=== PATIENT | male | born 1940 | race Caucasian/White ===

== ENCOUNTER 2019-09-24 23:16 | Inpatient (IN) ==
--- OUTSIDE RECORDS SUMMARY | 2019-09-24 23:18 | External Medical Summary | Continuity of Care Document ---
:1940 Author Name Hayes M.D. Address Unavailable Unavailable , Care Team Providers Name Role Phone Unavailable Unavailable Unavailable CATERINA, E Unavailable Unavailable Unavailable Unavailable Unavailable Problems Verruca (078.19) (B07.8) Neoplasm of uncertain behavior of skin (238.2) (D48.5) Seborrheic keratosis (702.19) (L82.1) Digital mucous cyst of toe (727.43) (M67.479) Allergies and Adverse Reactions Zosyn (Allergy) Medications Vitamin D 1000 UNIT TABS , M.D. Refills: 0 Vitamin B12 TABS , M.D. Refills: 0 Carbidopa-Levodopa 25-100 MG Oral Tablet , M.D. Refills: 0 Procedures Procedures not documented Immunizations Immunizations not documented Plan of Treatment Planned Observations Planned Goals not documented Results No Known Results Results not documented
--- OUTSIDE RECORDS SUMMARY | 2019-09-24 23:20 | External Medical Summary | Continuity of Care Document ---
:1940 Author Name Hayes M.D. Address Unavailable Unavailable , Care Team Providers Name Role Phone Unavailable Unavailable Unavailable CATERINA, E Unavailable Unavailable Unavailable Unavailable Unavailable Problems Verruca (078.19) (B07.8) Seborrheic keratosis (702.19) (L82.1) Digital mucous cyst of toe (727.43) (M67.479) Neoplasm of uncertain behavior of skin (238.2) (D48.5) Allergies and Adverse Reactions Zosyn (Allergy) Medications Carbidopa-Levodopa 25-100 MG Oral Tablet , M.D. Refills: 0 Vitamin B12 TABS , M.D. Refills: 0 Vitamin D 1000 UNIT TABS , M.D. Refills: 0 Procedures Procedures not documented Immunizations Immunizations not documented Plan of Treatment Planned Observations Planned Goals not documented Results No Known Results Results not documented
[2019-09-24] MEDS ORDERED: SODIUM CHLORIDE 0.9% 1000ML 1,000 ML IV ONE (23:50)
[2019-09-25 00:25] LABS: Hematocrit (blood only) 37.8 % (42-52); Mean Corpuscular Hemoglobin 32.7 pg (25-34); Mean Corpuscular Hgb Conc 34.4 g/dL (32-36); Mean Platelet Volume 10.7 fL (7.4-10.4); Platelet Count 157 K/uL (130-400); RDW Coefficient of Variation 14.6 % (11.5-14.5); RDW Standard Deviation 50.3 fL (36.4-46.3); Red Blood Count 3.98 M/uL (4.7-6.1); White Blood Count 4.52 K/uL (4.8-10.8)
[2019-09-25 00:37] LABS: Prothrombin Time 10.3 Seconds (9.0-12.0)
[2019-09-25 00:41] LABS: Alanine Aminotransferase 11 U/L (12-78); Albumin Level 3.1 gm/dl (3.4-5.0); Aspartate Aminotransferase 25 U/L (15-37); BUN Creatinine Ratio 28.1 (10-20); Bilirubin Direct 0.1 mg/dl (0-0.2); Blood Urea Nitrogen 26 mg/dl (7-18); Carbon Dioxide 30 mmol/L (21-32); Chloride 105 mmol/L (98-107); Est GFR (African American) 90.3; Est GFR (Non-African American) 77.9; Glucose 94 mg/dl (70-99); Magnesium 2.2 mg/dl (1.8-2.4); Potassium 4.3 mmol/L (3.5-5.1); Sodium 140 mmol/L (136-145)
[2019-09-25 00:46] LABS: Alkaline Phosphatase 141 U/L (45-117); Basophils # (auto) 0.05 K/uL (0-0.2); Basophils % (auto) 1.1 %; Bilirubin,Total 0.4 mg/dl (0.2-1); Eosinophils # (auto) 0.05 K/uL (0-0.5); Eosinophils % (auto) 1.1 %; Immature Granulocytes % (auto) 6.6 %; Lymphocytes # (auto) 1.14 K/uL (1.2-3.4); Lymphocytes % (auto) 25.2 %; Monocytes # (auto) 0.46 K/uL (0.11-0.59); Monocytes % (auto) 10.2 %; Neutrophils # (auto) 2.52 K/uL (1.4-6.5); Neutrophils % (auto) 55.8 %; RBC Morphology Unremarkable; Total Protein 7.4 gm/dl (6.4-8.2); Troponin I < 0.015 ng/ml (0-0.045)
[2019-09-25 01:42] LABS: Appearance Urine Clear (Clear); Bilirubin Urine Negative (Negative); Blood Urine Negative (Negative); Color Urine Yellow; Glucose Urine UA Negative (Negative); Ketones Urine Negative (Negative); Leukocyte Esterase Urine Negative (Negative); Nitrite Urine Negative (Negative); Protein Urine Negative (Negative); Specific Gravity Urine 1.019 (1.000-1.030); Urobilinogen Urine Negative (Negative); pH Urine 5.5 (4.5-7.5)
[2019-09-25] MEDS ORDERED: ASPIRIN CHEW 324 MG PO STA (02:08)
--- NOTE | 2019-09-25 02:51 | History & Physical Report ---
Date of Service September 25, 2019 Assessment & Plan (1) Facial droop: Right facial droop With weakness/numbness on the contralateral extremities Possible CVA (?brainstem lesion) ? 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 prostate cancer status post surgery Parkinson's disease, at baseline Chronic anemia, hemoglobin better than last baseline documented in Epic OBS Medical telemetry Neurochecks Add Plavix to aspirin for now for possible aspirin failure until acute stroke ruled out Repeat CT head after 12 hours RE follow-up study for possible CVA (MRI unfortunately precluded by PPM.) Stroke work-up as follows : TTE, carotid Dopplers, check lipid profile Neurology consult RE right facial droop w contralateral extremity weakness/numbness Permissive hypertension for now DVT prophylaxis per Lovenox subcu Full code Text document was generated using [employer] voice recognition software. It may contain grammatical or spelling errors. Kindly contact undersigned for clarification of any documentation item in question. History of Present Illness Parkinson's disease as per records, hernia repair, Chief Complaint: Weakness Primary Care Provider: Nir Ulloa History obtained from patient, family, and records. Medical history significant for symptomatic bradycardia status post PPM , smoldering myeloma ongoing Revlimid tx, prostate cancer status post surgery, history of Parkinson's disease, liver hemangioma status post surgery. Yesterday morning patient woke up feeling weaker than usual which patient attributed to chemotherapy medicine. Left arm felt a little weaker than the right. Left lower extremity numbness. No headache. Some dizziness symptoms as per patient. Around dinnertime last night, patient noted right lower side of the face to be a little droopy. No prior episodes. Patient brought to the ER for evaluation by family. 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, lives with Allergies Allergy/AdvReac Type Severity Reaction Status Date / Time piperacillin AdvReac Intermediate COLD SWEAT Unverified 09/25/19 00:27 tazobactam AdvReac Intermediate COLD SWEAT Unverified 09/25/19 00:27 Home Medications Home Medications Medication Instructions Recorded Confirmed Type Magnesium Complex 400 mg PO DAILY 09/25/19 09/25/19 History Medical Marijuana 1 dose PO DIRECTED 09/25/19 09/25/19 History acyclovir 400 mg PO BID 09/25/19 09/25/19 History ascorbic acid (vitamin C) [Vitamin 1,000 mg PO DAILY 09/25/19 09/25/19 History C] aspirin [Aspirin Low Dose] 81 mg PO DAILY 09/25/19 09/25/19 History carbidopa-levodopa 1 tab PO DIRECTED 09/25/19 09/25/19 History cholecalciferol (vitamin D3) 5,000 unit PO DAILY 09/25/19 09/25/19 History dexamethasone 20 mg PO DIRECTED 09/25/19 09/25/19 History lenalidomide [Revlimid] 10 mg PO DIRECTED 09/25/19 09/25/19 History tramadol 50 mg PO DIRECTED PRN 09/25/19 09/25/19 History Past Med/Surg History Medical History Multiple myeloma Pacemaker Parkinson's disease Tremor Family History Other No pertinent family history Social History Preferred Language: Malaysian Communication Ability: Effective Process 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 Required: No Beliefs That Will Affect Care: None Current Living Situation: Spouse Feels Safe at Home: Yes Smoking Status: Never smoker Do You Dip or Chew Tobacco: No ; Hx Alcohol Use: No Hx Substance Use: No Review of Systems Review of Systems: As per HPI, all 10 systems reviewed, all other ROS negative Physical Exam Physical Exam: GENERAL: Comfortable, slightly anxious, no respiratory distress SKIN: Pallor , warm HEENT: Pale palpebral conjunctivae, no ptosis, nasolabial fold flattening right face, dry buccal mucosa NECK : Supple, no tenderness CHEST : CTA, no tenderness HEART : RRR, no obvious murmurs ABDOMEN: Some distention, nontender EXTREMITIES : No LE swelling/tenderness, no other conspicuous deformities noted NEUROLOGIC : Coherent, subtle right facial asymmetry, MMTS BUE, BLE 3/5, no pronator drift, rest tremors more prominent on the right upper extremity, gait and stance not assessed Results & Data Vital Signs (Past 12 Hours) Vital Signs Temp Pulse Pulse Resp BP BP Pulse Ox 09/25/19 01:00 69 20 165/68 H 99 09/25/19 00:25 77 20 152/72 H 98 09/25/19 00:22 98 09/24/19 23:29 36.5 C 79 18 151/78 H 100 Laboratory Results Laboratory Results WBC 4.52 K/uL (4.8-10.8) L 09/25/19 00:05 RBC 3.98 M/uL (4.7-6.1) L 09/25/19 00:05 Hgb 13.0 g/dL (14.0-18.0) L 09/25/19 00:05 Hct 37.8 % (42-52) L 09/25/19 00:05 MCV 95.0 fL (80-100) 09/25/19 00:05 MCH 32.7 pg (25-34) 09/25/19 00:05 MCHC 34.4 g/dL (32-36) 09/25/19 00:05 RDW Std Deviation 50.3 fL (36.4-46.3) H 09/25/19 00:05 RDW Coeff of Sven 14.6 % (11.5-14.5) H 09/25/19 00:05 Plt Count 157 K/uL (130-400) 09/25/19 00:05 MPV 10.7 fL (7.4-10.4) H 09/25/19 00:05 Immature Gran % (Auto) 6.6 % 09/25/19 00:05 Neut % (Auto) 55.8 % 09/25/19 00:05 Lymph % (Auto) 25.2 % 09/25/19 00:05 Major % (Auto) 10.2 % 09/25/19 00:05 Eos % (Auto) 1.1 % 09/25/19 00:05 Baso % (Auto) 1.1 % 09/25/19 00:05 Immature Gran # (Auto) 0.30 K/uL (0.00-0.02) H 09/25/19 00:05 Neut # (Auto) 2.52 K/uL (1.4-6.5) 09/25/19 00:05 Lymph # (Auto) 1.14 K/uL (1.2-3.4) L 09/25/19 00:05 Major # (Auto) 0.46 K/uL (0.11-0.59) 09/25/19 00:05 Eos # (Auto) 0.05 K/uL (0-0.5) 09/25/19 00:05 Baso # (Auto) 0.05 K/uL (0-0.2) 09/25/19 00:05 RBC Morphology Unremarkable 09/25/19 00:05 PT 10.3 Seconds (9.0-12.0) 09/25/19 00:05 INR 1.0 (0.9-1.1) 09/25/19 00:05 Sodium 140 mmol/L (136-145) 09/25/19 00:05 Potassium 4.3 mmol/L (3.5-5.1) 09/25/19 00:05 Chloride 105 mmol/L (98-107) 09/25/19 00:05 Carbon Dioxide 30 mmol/L (21-32) 09/25/19 00:05 Anion Gap 5.0 (3-11) 09/25/19 00:05 BUN 26 mg/dl (7-18) H 09/25/19 00:05 Creatinine 0.94 mg/dl (0.6-1.4) 09/25/19 00:05 Est Cr Clr Drug Dosing Not Reportable 09/25/19 00:05 Est GFR ( Amer) 90.3 09/25/19 00:05 Est GFR (Non-Af Amer) 77.9 09/25/19 00:05 BUN/Creatinine Ratio 28.1 (10-20) H 09/25/19 00:05 Glucose 94 mg/dl (70-99) 09/25/19 00:05 Calcium 9.0 mg/dl (8.5-10.1) 09/25/19 00:05 Magnesium 2.2 mg/dl (1.8-2.4) 09/25/19 00:05 Total Bilirubin 0.4 mg/dl (0.2-1) 09/25/19 00:05 Direct Bilirubin 0.1 mg/dl (0-0.2) 09/25/19 00:05 AST 25 U/L (15-37) 09/25/19 00:05 ALT 11 U/L (12-78) L 09/25/19 00:05 Alkaline Phosphatase 141 U/L (45-117) H 09/25/19 00:05 Troponin I < 0.015 ng/ml (0-0.045) 09/25/19 00:05 Total Protein 7.4 gm/dl (6.4-8.2) 09/25/19 00:05 Albumin 3.1 gm/dl (3.4-5.0) L 09/25/19 00:05 Urine Color Yellow 09/25/19 01:20 Urine Appearance Clear (Clear) 09/25/19 01:20 Urine pH 5.5 (4.5-7.5) 09/25/19 01:20 Ur Specific [place] 1.019 (1.000-1.030) 09/25/19 01:20 Urine Protein Negative (Negative) 09/25/19 01:20 Urine Glucose (UA) Negative (Negative) 09/25/19 01:20 Urine Ketones Negative (Negative) 09/25/19 01:20 Urine Blood Negative (Negative) 09/25/19 01:20 Urine Nitrite Negative (Negative) 09/25/19 01:20 Urine Bilirubin Negative (Negative) 09/25/19 01:20 Urine Urobilinogen Negative (Negative) 09/25/19 01:20 Ur Leukocyte Esterase Negative (Negative) 09/25/19 01:[address] head initial read: No acute intracranial abnormality. Small 4 mm colloid cyst near the montanez of [facility]. Mild cerebral volume loss. Chest x-ray as per my interpretation: Atelectasis, PPM left EKG as per my interpretation : Rate 70, NSR, normal axis, no ischemia, PVCs
[2019-09-25] MEDS ORDERED: CLOPIDOGREL BISULFATE 75 MG TAB PO STA (02:55)
[2019-09-25] MEDS ORDERED: PROMETHAZINE HCL 12.5 MG in SODIUM CHLORIDE 0.9% 50 ML IV PRN (04:15)
[2019-09-25] MEDS ORDERED: TRAMADOL HCL 50 MG TABLET PO PRN (04:15)
[2019-09-25] MEDS ORDERED: LACTATED RINGER'S 1,000 ML IV ONE (04:15)
[2019-09-25] MEDS ORDERED: ACETAMINOPHEN 325 MG TAB PO PRN (04:15)
[2019-09-25] MEDS ORDERED: MEDICAL MARIJUANA PO PRN (04:49)
[2019-09-25] MEDS ORDERED: PATIENT'S HEIGHT AND/OR WEIGHT NEEDED SCH (05:00)
--- NOTE | 2019-09-25 06:10 | Emergency Department Note ---
Entered by Cris Miranda acting as a scribe for ED Provider Note Name: MIKAELA ALEXANDRA Age: 78 Arrives Via: Walk-In Informant: Patient CC: Weakness HPI: 78M arrives for evaluation of weakness that began this morning. The patient complains of intermittent shakiness as well. He has a history of Parkinsons, but his tremors seem to be worse today. He is also on a chemotherapy pill since January for multiple myeloma. He notes weakness in his left leg and arm. The patient denies history of stroke, or any family history of stroke or heart disease. He takes baby aspirin each day. He denies urinary symptoms, double vision, chest pain, palpitations, diarrhea, shortness of breath, and abdominal pain. ROS: See above HPI for pertinent positives & negatives. A total of 10 systems reviewed and were otherwise negative. Past Medical History: Hypertension Multiple Myeloma Parkinson's disease Past Surgical History:No known surgical history Family History:No pertinent family history Social History:See Below Home Medications:See Below Allergies:Piperacillin and Tazobactam Vitals:BP: 151/78 Pulse: 79 Resp: 18 Temp: 36.5 O2 Sat: 100 Physical Exam: GENERAL: Patient is chronically unwell appearing and in mild distress. EYES: No scleral icterus, unremarkable pupils. ENT: Mucous membranes dry, no nasal congestion. NECK: No masses appreciated, nomeningismus, trachea is midline. RESPIRATORY: No dyspnea. Clear to auscultation and equal bilaterally. No wheeze, no rhonchi. CARDIOVASCULAR: Regular rate and rhythm.No murmurs, rubs, gallops appreciated. GASTROINTESTINAL: Abdomen soft, non-tender, no peritonitis.Bowel sounds positive.No masses appreciated. BACK: No midline tenderness, no CVA tenderness EXTREMITIES: Normal motion all extremities, no cyanosis, no edema. NEUROLOGIC: Constant tremor in all extremities. Right lower facial droop overcome with voluntary muscles. Mild decreased strength left hand. Ataxic with left lower leg. Alert and oriented, no acute motor or sensory deficits, no focal weakness, cranial nerves grossly intact. SKIN: No rash, no jaundice, no diaphoresis. ED Course: Prior Medical Record, Triage/Nursing Notes, Medications, Allergies reviewed by Me Vital Signs: reviewed and remarkable for HTN Labs:Reviewed and remarkable for no significant abnormalities Interventions: Saline Lock, NSS bolus 1 L IV, Asa 324mg PO Imaging:X ray results are stated below per my interpretation: Chest: 1 view: No infiltrate, no effusion, normal cardiac border. [facility] Radiologist interpretation reviewed by me: CT head no acute findings EKG:Per My Interpretation: Indication Weakness: NSR 71 bpm, qtc 432. No Ectopy. No Ischemia. Compared to EKG 07/24/15, no significant changes Reassessments/Times: 2342: Past medical records reviewed. The patient was evaluated in room C11B. A complete history and physical exam was performed. 0110: The patient feels much better. He still has weakness to his hand, but better color to his face. 0207: Dr. Walker, [facility] hospitalist, has been paged. The patient was agreeable with staying in the hospital and understands the treatment plan. 0211: I spoke to Dr. Walker who agreed to take over care of the patient. He will stay for further evaluation. Blood pressure:Elevated - further management by hospitalist Disposition:Admit Prescriptions:None. Differentials: Differential includes acute coronary syndrome, myocardial infarction, CVA, TIA, anemia, infection, pneumonia, UTI, pyelonephritis, poor nutrition, dehydration, electrolyte disturbance,hypoglycemia, as well as others were considered. Medical Decision Making: Pleasant 78 yr old male with multiple myeloma and parkinsons amongst others arrives with worsening weakness primarily of left hand/leg but also found to have right lower facial droop. Facial droop resolved with IV fluids and patient feeing much better. Still with hand weakness. Clearly was dehydrated which may have exacerbated symptoms but on further exams still with weakness in hand. He likely had small CVA though not TPA candidate given length of symptoms. He is breathing comfortably, has no evidence of infection and is otherwise stable. Given history and findings hospitalist consulted for further evaluation. Patient given ASA for neuro protection. Impression: Left arm weakness Right facial droop Dehydration The scribe's documentation has been prepared under my direction and personally reviewed by me in its entirety. I confirm that the note above accurately reflects all work, treatment, procedures, and medical decision making performed by me. Gabriel Zimmer MD Impression & Plan Left arm weakness, Dehydration, Facial droop Past Med/Surg History Medical History Multiple myeloma Pacemaker Parkinson's disease Tremor Family History Other No pertinent family history Social History Preferred Language: Maldivian Communication Ability: Effective Regional Guide Required: No Beliefs That Will Affect Care: None Current Living Situation: Spouse Feels Safe at Home: Yes Smoking Status: Never smoker Do You Dip or Chew Tobacco: No ; Hx Alcohol Use: No Hx Substance Use: No Results & Data Vital Signs Vital Signs - 24 hr 09/24/19 23:29 09/25/19 00:22 09/25/19 00:25 Temperature 36.5 C Temperature Source Oral Pulse Rate 79 Pulse Rate [Apical] 77 Pulse Rhythm Regular Pulse Rhythm [Apical] Regular Pulse Strength Normal Pulse Strength [Apical] Normal Respiratory Rate 18 20 Respiratory Effort / Characteristics Non-Labored Spontaneous Non-Labored Respiratory Depth Normal Normal Respiratory Pattern Blood Pressure 151/78 H Blood Pressure [Right Arm] 152/72 H Blood Pressure Mean 102 Blood Pressure Mean [Right Arm] 98 Blood Pressure Position Sitting Blood Pressure Position [Right Arm] Sitting Pulse Oximetry 100 98 98 Oxygen Delivery Method Room Air Room Air Room Air Sepsis Recent Fever Within 48 Hours No Sepsis New/Unexplained Change in Mental Status No Sepsis Action Taken by Nursing No Action Required 09/25/19 01:00 09/25/19 02:50 Temperature Temperature Source Pulse Rate Pulse Rate [Apical] 69 69 Pulse Rhythm Pulse Rhythm [Apical] Regular Pulse Strength Pulse Strength [Apical] Normal Respiratory Rate 20 20 Respiratory Effort / Characteristics Non-Labored Spontaneous Respiratory Depth Normal Respiratory Pattern Regular Blood Pressure Blood Pressure [Right Arm] 165/68 H 147/71 H Blood Pressure Mean Blood Pressure Mean [Right Arm] 100 96 Blood Pressure Position Blood Pressure Position [Right Arm] Sitting Sitting Pulse Oximetry 99 100 Oxygen Delivery Method Room Air Room Air Nasal Cannula Sepsis Recent Fever Within 48 Hours Sepsis New/Unexplained Change in Mental Status Sepsis Action Taken by [facility] Medications Current Medication List: was personally reviewed by me Laboratory Data Attestation: I reviewed the patient's lab results. Result diagrams: 09/25/19 00:05 09/25/19 00:05 Lab Results 09/25/19 09/25/19 09/25/19 Range/Units 00:05 00:05 00:05 WBC 4.52 L (4.8-10.8) K/uL RBC 3.98 L (4.7-6.1) M/uL Hgb 13.0 L (14.0-18.0) g/dL Hct 37.8 L (42-52) % MCV 95.0 (80-100) fL MCH 32.7 (25-34) pg MCHC 34.4 (32-36) g/dL RDW Std Deviation 50.3 H (36.4-46.3) fL RDW Coeff of Sven 14.6 H (11.5-14.5) % Plt Count 157 (130-400) K/uL MPV 10.7 H (7.4-10.4) fL Immature Gran % (Auto) 6.6 % Neut % (Auto) 55.8 % Lymph % (Auto) 25.2 % Elbert % (Auto) 10.2 % Eos % (Auto) 1.1 % Baso % (Auto) 1.1 % Immature Gran # (Auto) 0.30 H (0.00-0.02) K/uL Neut # (Auto) 2.52 (1.4-6.5) K/uL Lymph # (Auto) 1.14 L (1.2-3.4) K/uL Elbert # (Auto) 0.46 (0.11-0.59) K/uL Eos # (Auto) 0.05 (0-0.5) K/uL Baso # (Auto) 0.05 (0-0.2) K/uL RBC Morphology Unremarkable PT 10.3 (9.0-12.0) Seconds INR 1.0 (0.9-1.1) Sodium 140 (136-145) mmol/L Potassium 4.3 (3.5-5.1) mmol/L Chloride 105 (98-107) mmol/L Carbon Dioxide 30 (21-32) mmol/L Anion Gap 5.0 (3-11) BUN 26 H (7-18) mg/dl Creatinine 0.94 (0.6-1.4) mg/dl Est Cr Clr Drug Dosing Not Reportable Est GFR ( Amer) 90.3 Est GFR (Non-Af Amer) 77.9 BUN/Creatinine Ratio 28.1 H (10-20) Glucose 94 (70-99) mg/dl Calcium 9.0 (8.5-10.1) mg/dl Magnesium 2.2 (1.8-2.4) mg/dl Total Bilirubin 0.4 (0.2-1) mg/dl Direct Bilirubin 0.1 (0-0.2) mg/dl AST 25 (15-37) U/L ALT 11 L (12-78) U/L Alkaline Phosphatase 141 H (45-117) U/L Troponin I < 0.015 (0-0.045) ng/ml Total Protein 7.4 (6.4-8.2) gm/dl Albumin 3.1 L (3.4-5.0) gm/dl TSH 1.970 (0.300-4.500) uIu/ml Urine Color Urine Appearance (Clear) Urine pH (4.5-7.5) Ur Specific [place] (1.000-1.030) Urine Protein (Negative) Urine Glucose (UA) (Negative) Urine Ketones (Negative) Urine Blood (Negative) Urine Nitrite (Negative) Urine Bilirubin (Negative) Urine Urobilinogen (Negative) Ur Leukocyte Esterase (Negative) 09/25/19 Range/Units 01:20 WBC (4.8-10.8) K/uL RBC (4.7-6.1) M/uL Hgb (14.0-18.0) g/dL Hct (42-52) % MCV (80-100) fL MCH (25-34) pg MCHC (32-36) g/dL RDW Std Deviation (36.4-46.3) fL RDW Coeff of Sven (11.5-14.5) % Plt Count (130-400) K/uL MPV (7.4-10.4) fL Immature Gran % (Auto) % Neut % (Auto) % Lymph % (Auto) % Elbert % (Auto) % Eos % (Auto) % Baso % (Auto) % Immature Gran # (Auto) (0.00-0.02) K/uL Neut # (Auto) (1.4-6.5) K/uL Lymph # (Auto) (1.2-3.4) K/uL Elbert # (Auto) (0.11-0.59) K/uL Eos # (Auto) (0-0.5) K/uL Baso # (Auto) (0-0.2) K/uL RBC Morphology PT (9.0-12.0) Seconds INR (0.9-1.1) Sodium (136-145) mmol/L Potassium (3.5-5.1) mmol/L Chloride (98-107) mmol/L Carbon Dioxide (21-32) mmol/L Anion Gap (3-11) BUN (7-18) mg/dl Creatinine (0.6-1.4) mg/dl Est Cr Clr Drug Dosing Est GFR ( Amer) Est GFR (Non-Af Amer) BUN/Creatinine Ratio (10-20) Glucose (70-99) mg/dl Calcium (8.5-10.1) mg/dl Magnesium (1.8-2.4) mg/dl Total Bilirubin (0.2-1) mg/dl Direct Bilirubin (0-0.2) mg/dl AST (15-37) U/L ALT (12-78) U/L Alkaline Phosphatase (45-117) U/L Troponin I (0-0.045) ng/ml Total Protein (6.4-8.2) gm/dl Albumin (3.4-5.0) gm/dl TSH (0.300-4.500) uIu/ml Urine Color Yellow Urine Appearance Clear (Clear) Urine pH 5.5 (4.5-7.5) Ur Specific [place] 1.019 (1.000-1.030) Urine Protein Negative (Negative) Urine Glucose (UA) Negative (Negative) Urine Ketones Negative (Negative) Urine Blood Negative (Negative) Urine Nitrite Negative (Negative) Urine Bilirubin Negative (Negative) Urine Urobilinogen Negative (Negative) Ur Leukocyte Esterase Negative (Negative) Administered Medications Lactated Ringer's (Lr) 1,000 mls @ 50 mls/hr IV .Q20H ONE Stop: 09/26/19 00:14 Last Admin: 09/25/19 05:20 Dose: 50 mls/hr Documented by: [id number] Discontinued Medications Aspirin (Aspirin) 324 mg PO NOW STA Stop: 09/25/19 02:09 Last Admin: 09/25/19 02:16 Dose: 324 mg Documented by: [id number] Clopidogrel Bisulfate (Plavix) 75 mg PO NOW STA Stop: 09/25/19 02:56 Last Admin: 09/25/19 03:05 Dose: 75 mg Documented by: [id number] Sodium Chloride (Nss 1000ml) 1,000 mls @ 999 mls/hr IV .Q1H1M ONE Stop: 09/25/19 00:50 Last Infusion: 09/25/19 02:12 Dose: 0 mls/hr Documented by: [id number] Admin: 09/25/19 00:00 Dose: 999 mls/hr Documented by: [id number] Blood Pressure Blood Pressure Findings: Elevated blood pressure Blood Pressure Disposition: further management by hospitalist Discharge Plan Visit Data *Final* Discharge Date/Time: 09/25/19 03:33 Chief Complaint: Weakness Stated Complaint: WEAKNESS, [facility] ED Provider: Gabriel Zimmer Discharge Problem: Left arm weakness, Dehydration, Facial droop Patient Disposition: Admitted As Inpatient Discharge Instructions Interventions: ED Discharge Assessment Last Done: 09/25/19 03:33 The scribe's documentation has been prepared under my direction and personally reviewed by me in its entirety. I confirm that the note above accurately reflects all work, treatment, procedures, and medical decision making performed by me.
--- NOTE | 2019-09-25 07:02 | XRay Report ---
XR chest 1V portable CLINICAL HISTORY: 78 years-old Male presenting with weakness. TECHNIQUE: Portable upright AP view of the chest was obtained. COMPARISON: 07/24/2015. FINDINGS: Left subclavian pacer with leads to the right atrium and right ventricular apex. Cardiomediastinal si lhouette otherwise normal. Questionable nodular opacities in the apices, right greater than left. Thi s may in part be due to overlapping osseous structures. No large effusion or pneumothorax. Degenerati ve changes of the thoracic spine. Degenerative changes of the shoulders. Osteopenia suspected. Upper abdomen normal. IMPRESSION: 1. Questionable nodular opacities in the apices, right greater than left. This is new from prior exa m. This could represent pleural parenchymal scarring or developing infiltrates. Consider PA and later al views for better assessment. The report will be called/faxed according to standard departmental protocol. ACT 112: Negative or not required by law. Electronically signed by: Ernesto Johnson M.D. 09/25/2019 7:00 AM
--- NOTE | 2019-09-25 07:15 | CT Scan Report ---
CT SCAN OF THE BRAIN WITHOUT IV CONTRAST CLINICAL HISTORY: Left-sided weakness. Right-sided facial droop. COMPARISON STUDY: No priors. TECHNIQUE: Unenhanced axial CT scan of the brain is performed from the vertex to the skull base. A do se lowering technique was utilized adhering to the principles of ALARA. CT DOSE: 537.48 mGy.cm FINDINGS: Brain parenchyma: A 5 mm colloid cyst is noted at the roof of the third ventricle, best seen on image #13. There are age-related involutional changes noting minimal subcortical and periventricular micr oangiopathic change. There is no hemorrhage, mass effect, or evidence of acute territorial ischemia b y CT criteria. Cole-white matter differentiation is preserved. No extra-axial fluid collection is see n. Ventricles, sulci, cisterns: Prominent secondary to involutional change. Intracranial vasculature: There is atherosclerotic calcification of the cavernous carotid and vertebr al arteries. Calvarium: Unremarkable. Sinuses and mastoids: There are secretions/air-fluid levels present within the maxillary antra. The r emaining paranasal sinuses are clear. The mastoid air cells are well pneumatized. Orbits: The bony orbits are grossly intact. IMPRESSION: 1. There is no hemorrhage, mass effect, or evidence of acute territorial ischemia by CT criteria. 2. Maxillary sinus disease as above. 3. 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 ACT 112: Negative or not required by law. Electronically signed by: Richard Demarco M.D. 09/25/2019 7:14 AM
[2019-09-25] MEDS: CARBIDOPA/LEVODOPA 25/100MG TAB PO SCH ×5 (07:58→21:05)
[2019-09-25] MEDS: ACYCLOVIR 400 MG TAB PO SCH ×2 (07:59→21:05)
[2019-09-25] MEDS ORDERED: ENOXAPARIN INJ 30 MG/0.3 ML SYR SQ SCH (09:00)
--- NOTE | 2019-09-25 10:17 | Ultrasound Report ---
BILATERAL CAROTID DOPPLER STUDY HISTORY: Left-sided weakness. stroke COMPARISON: None. TECHNIQUE: Real-time, grayscale, and color Doppler sonography of the carotid arteries was performed. Imaging reviewed in the transverse and longitudinal planes. All measurements were calculated based on NASCET criteria. FINDINGS: Antegrade flow is seen in the bilateral vertebral arteries. The brachial pressures are hemodynamically similar. The peak systolic velocity within the right ICA is 87 cm/s. The right systolic ratio is 0.9. The peak systolic velocity within the left ICA is 83 cm/s. The left systolic ratio is 0.9. IMPRESSION: No hemodynamically significant stenosis seen within the carotid arteries. ACT 112: Negative or not required by law. Electronically signed by: Jerad Neal M.D. 09/25/2019 10:15 AM
--- NOTE | 2019-09-25 10:45 | Electrocardiogram Report ---
Test Reason : Blood Pressure : / mmHG Vent. Rate : 071 BPM Atrial Rate : 071 BPM P-R Int : 150 ms QRS Dur : 072 ms QT Int : 398 ms P-R-T Axes : 033 004 061 degrees QTc Int : 432 ms Poor data quality, interpretation may be adversely affected Sinus rhythm with Premature supraventricular complexes Nonspecific ST abnormality Abnormal ECG When compared with ECG of 24-JUL-2015 20:27, Premature supraventricular complexes are now Present Confirmed by Franko De Souza ([id number]) on 09/25/2019 10:44:49 AM Referred By: REFERRED SELF Confirmed By:Franko De Souza
[2019-09-25] MEDS: LENALIDOMIDE PO SCH (12:56)
--- NOTE | 2019-09-25 13:38 | XRay Report ---
XR chest 2V PA/lateral HISTORY: Abnormal chest x-ray. r/o pneumonia COMPARISON: Chest 09/25/2019. FINDINGS: The heart is normal in size. Left-sided dual-chamber pacemaker. No pleural effusions. No pn eumothorax. The lower lung zones are clear. Biapical reticulonodular densities are again noted. No ev idence for pulmonary edema. IMPRESSION: No change in the chronic biapical reticulonodular densities compared to the 2015 chest CTA. No new fo fabrizio lung consolidations to suggest pneumonia. ACT 112: Negative or not required by law. Electronically signed by: Jerad Neal M.D. 09/25/2019 1:36 PM
--- NOTE | 2019-09-25 15:28 | Neurology Consultation ---
Date of Consultation September 25, 2019 Assessment & Plan (1) Parkinson's disease: 1. CT head- no acute findings 2. TTE- >70 % EF no ASD 3. CTA head and neck for any occlusion or significant stenosis 4. MRI brain would be helpful if able to obtain 5. continue aspirin 81 mgand Plavix and may switch to plavix intermediate card tender if any evidence of occlusion or stroke but with his current chemo therapy would not advocate for dual therapy for a prolonged period of time ( see below notation by Dr Bonds ) 6. PT/OT for discharge needs 7. optimize HTN, HLD, DM LDL <70 consider patient age and comorbid issues (2) Multiple myeloma: (3) Left arm weakness: Supervising Physician Co-Signing Physician Notes I have seen and discussed above patient with Dr Dennys Bonds, neurology I have interviewed examined and reviewed this man's case with Herminia Jefferson PA-C and in fact examined him and conjunction with Herminia Jefferson and discussed the case with the family who were present in the room This man has moderately advanced Parkinson's on Sinemet who has increasing tremor and mild to moderate generalized bradykinesia and rigidity affecting the left leg to some degree more than the right and perhaps the right arm more than the left. 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 The initial CT scan did not show anything of significance but again a small infarction is going to be missed and we cannot do an MRI scan because of the pacemaker. 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 and is not lis aislinn as a diagnostic entity on his chart and he has been treated only with aspirin What ever the case he seems to be back to baseline state now and we are going to repeat a CAT scan of the morning and do a CT angiographic study of the extracranial and intracranial vessels just to be sure there is not a potential issue with carotid occlusive disease or intracranial disease I agree with the dual antiplatelet therapy at this point but this may need mitigated in the setting of marginal thrombocytopenia related to his chemotherapy and perhaps an underlying bone marrow infiltration by plasma cells If we do not see evidence for a completed stroke I could justify 21 days of dual antiplatelet therapy and then the use of Plavix but the justification for this is the best marginal and I certainly would not use this approach for more than the usual 21 days for fear of inducing bleeding in the setting of marginal thrombocytopenia We will check back tomorrow Dennys Bonds MD History of Present Illness Reason for Consultation: facial weakness Requesting Physician: Kobi Bolton MD Attending Physician: Kobi Bolton MD History of Present Illness Mars is a 78 year old male with Parkinson's, multiple myeloma, pacemaker who presented with weakness that began the morning of presentation. He also has intermittent shakiness as well and the tremors seem to be worse. He is also on a chemotherapy pill since January for multiple myeloma which is when his weakness started to increase. He feels the right arm and left leg are the weakest. He takes baby aspirin each day. He denies urinary symptoms, double vision, chest pain, palpitations, diarrhea, shortness of breath, and abdominal pain, falls. Allergies Allergy/AdvReac Type Severity Reaction Status Date / Time piperacillin AdvReac Intermediate COLD SWEAT Unverified 09/25/19 00:27 tazobactam AdvReac Intermediate COLD SWEAT Unverified 09/25/19 00:27 Home Medications Home Medications Medication Instructions Recorded Confirmed Type Magnesium Complex 400 mg PO DAILY 09/25/19 09/25/19 History Medical Marijuana 1 dose PO DIRECTED 09/25/19 09/25/19 History acyclovir 400 mg PO BID 09/25/19 09/25/19 History ascorbic acid (vitamin C) [Vitamin 1,000 mg PO DAILY 09/25/19 09/25/19 History C] aspirin [Aspirin Low Dose] 81 mg PO DAILY 09/25/19 09/25/19 History carbidopa-levodopa 1 tab PO DIRECTED 09/25/19 09/25/19 History cholecalciferol (vitamin D3) 5,000 unit PO DAILY 09/25/19 09/25/19 History dexamethasone 20 mg PO DIRECTED 09/25/19 09/25/19 History lenalidomide [Revlimid] 10 mg PO DIRECTED 09/25/19 09/25/19 History tramadol 50 mg PO DIRECTED PRN 09/25/19 09/25/19 History Patient History Medical History Multiple myeloma Pacemaker Parkinson's disease Tremor Family History Other No pertinent family history Social History Preferred Language: [place] Communication Ability: Effective Consulting Technical Director Required: No Beliefs That Will Affect Care: None marital status: Current Living Situation: Spouse Feels Safe at Home: Yes Smoking Status: Never smoker Do You Dip or Chew Tobacco: No ; Hx Alcohol Use: No Hx Substance Use: No Physical Exam Physical Exam: Physical Exam: Constitutional: appearance nourished, mask facies, slight right mouth droop Ears, Nose, Mouth and Throat: mucous membranes moist, no injection and skin normal, eyes normal Cardiovascular: normal S-1 and S-2 and regular rate and rhythm Respiratory: course breath sounds Musculoskeletal: no peripheral edema and good distal pulses Skin: no stigmata of neurocutaneous disease noted and normal and intact Eyes: extraocular muscles intact (EOMI) and pupils equal, round and reactive to light (PERRL), decreased blink NEUROLOGIC EXAMINATION: Mental status: Alert and interactive Oriented to full date and location Oriented to person Speech fluent with no evidence of aphasia Cranial Nerves smile eye brow raise symmetric Reflexes: Deep tendon reflexes were symmetrical and brisk bilaterally Sensory: intact to light and cool touch Coordination: finger to nose no bi pass bilaterally rapid hand movements bilaterally slow Gait/Stance: Posture sitting in bed Motor: Negative for pronator drift of out stretched arms with eyes closed. Strength: biceps triceps deltoids bilaterally 4+/5, hip flex patellar plantar flex ext 4+/5 Results & Data Vital Signs (Past 12 Hours) Vital Signs Temp Pulse Pulse Resp BP BP BP 09/25/19 15:25 36.3 C L 67 20 124/53 L 09/25/19 07:15 36.8 C 60 18 157/78 H 09/25/19 07:11 69 09/25/19 03:58 66 09/25/19 03:56 36.7 C 73 18 163/86 H 09/25/19 03:33 69 18 153/80 H Pulse Ox 09/25/19 15:25 98 09/25/19 07:15 99 09/25/19 07:11 09/25/19 03:58 09/25/19 03:56 97 09/25/19 03:33 99 Laboratory Results Abnormal lab results 09/25/19 09/25/19 Range/Units 00:05 00:05 WBC 4.52 L (4.8-10.8) K/uL RBC 3.98 L (4.7-6.1) M/uL Hgb 13.0 L (14.0-18.0) g/dL Hct 37.8 L (42-52) % RDW Std Deviation 50.3 H (36.4-46.3) fL RDW Coeff of Sven 14.6 H (11.5-14.5) % MPV 10.7 H (7.4-10.4) fL Immature Gran # (Auto) 0.30 H (0.00-0.02) K/uL Lymph # (Auto) 1.14 L (1.2-3.4) K/uL BUN 26 H (7-18) mg/dl BUN/Creatinine Ratio 28.1 H (10-20) ALT 11 L (12-78) U/L Alkaline Phosphatase 141 H (45-117) U/L Albumin 3.1 L (3.4-5.0) gm/dl Diagnostic Findings CT head- There is no hemorrhage, mass effect, or evidence of acute territorial ischemia by CT criteria. Maxillary sinus disease as above. 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 CXR- Questionable nodular opacities in the apices, right greater than left. This is new from prior exam. This could represent pleural parenchymal scarring or developing infiltrates. Consider PA and lateral views for better assessment. carotid doppler-No hemodynamically significant stenosis seen within the carotid arteries. TTE- >70% EF, no ASD
--- NOTE | 2019-09-25 17:55 | Hospitalist Progress Note ---
Date of Service September 25, 2019 Assessment & Plan (1) Facial droop: Right facial droop With weakness/numbness on the contralateral extremities --Rule out acute CVA --Initial CT head: No acute process Repeat CT head scheduled for 7 PM: Pending Brain MRI unable to be obtained in light of pacemaker device Carotid Dopplers: No hemodynamically significant stenosis Lipid profile pending --Already on aspirin 81 mg p.o. daily, Plavix 75 mg p.o. daily added If acute CVA confirmed, will need a statin --Neurology service consulted Hypertension, secondary to above --Improving --We will add hydralazine as needed for systolic blood pressure more than 180 Allow permissive hypertension to promote adequate cerebral perfusion hx symptomatic bradycardia status post PPM --Heart rate stable smoldering myeloma ongoing Revlimid tx --Follows with Dr. River in [place] for oncology prostate cancer status post surgery Parkinson's disease, at baseline Chronic anemia, hemoglobin better than last baseline documented in Epic --Monitor DVT prophylaxis per Lovenox subcu Full code Disposition Anticipate discharge to home when medically stable Follow-up with PCP, neurology, oncology Admission and Anticipated Discharge Date Admission Date: September 25, 2019 Subjective Follow-up for right facial droop, left-sided weakness Patient seen with his and sons at the bedside visit Resting in bed, comfortable, very pleasant States left-sided weakness has almost resolved, still has some mild right facial droop, and dysarthria Denies any other focal neurologic deficits No shortness of breath, chest pain, palpitations, dizziness, nausea No other symptoms Review of Systems Review of Systems: All systems reviewed & are unremarkable except as noted in HPI & below Physical Exam Physical Exam: General- oriented x 3, not in distress, speaks in sentences with no effort or accessory muscle use Head- atraumatic Eyes- PERRL, EOMI, anicteric ENT- oropharynx clear Neck- supple, no JVD, no adenopathy, no thyromegaly; carotids +2/2, no bruits appreciated Lungs- clear to auscultation bilaterally, no rales/wheezes Heart- normal rate, regular rhythm; no murmur, no gallop, no rub appreciated Abdomen- normal bowel sounds, nondistended, soft, nontender, no masses or hepatosplenomegaly Extremities- no pretibial edema, no calf tenderness; peripheral pulses intact Neuro- alert, oriented x 3; CN 2-12 grossly intact except for mild right-sided facial droop, very mild dysarthria; motor 5/5 bilaterally except for left upper extremity 4 out of 5 strength;sensation 100% on all extremities; no other gross focal neurologic deficits Skin- warm & dry Results & Data ([facility]) Vital Signs (Past 12 Hours) Vital Signs Temp Pulse Pulse Resp BP Pulse Ox 09/25/19 15:25 36.3 C L 67 20 124/53 L 98 09/25/19 07:15 36.8 C 60 18 157/78 H 99 09/25/19 07:11 69 Laboratory Results Laboratory Results - last 24 hr 09/25/19 09/25/19 09/25/19 00:05 00:05 00:05 WBC 4.52 L RBC 3.98 L Hgb 13.0 L Hct 37.8 L MCV 95.0 MCH 32.7 MCHC 34.4 RDW Std Deviation 50.3 H RDW Coeff of Sven 14.6 H Plt Count 157 MPV 10.7 H Immature Gran % (Auto) 6.6 Neut % (Auto) 55.8 Lymph % (Auto) 25.2 [place] % (Auto) 10.2 Eos % (Auto) 1.1 Baso % (Auto) 1.1 Immature Gran # (Auto) 0.30 H Neut # (Auto) 2.52 Lymph # (Auto) 1.14 L [place] # (Auto) 0.46 Eos # (Auto) 0.05 Baso # (Auto) 0.05 RBC Morphology Unremarkable PT 10.3 INR 1.0 Sodium 140 Potassium 4.3 Chloride 105 Carbon Dioxide 30 Anion Gap 5.0 BUN 26 H Creatinine 0.94 Est Cr Clr Drug Dosing Not Reportable Est GFR ( Amer) 90.3 Est GFR (Non-Af Amer) 77.9 BUN/Creatinine Ratio 28.1 H Glucose 94 Calcium 9.0 Magnesium 2.2 Total Bilirubin 0.4 Direct Bilirubin 0.1 AST 25 ALT 11 L Alkaline Phosphatase 141 H Troponin I < 0.015 Total Protein 7.4 Albumin 3.1 L TSH 1.970 Urine Color Urine Appearance Urine pH Ur Specific [place] Urine Protein Urine Glucose (UA) Urine Ketones Urine Blood Urine Nitrite Urine Bilirubin Urine Urobilinogen Ur Leukocyte Esterase 09/25/19 01:20 WBC RBC Hgb Hct MCV MCH MCHC RDW Std Deviation RDW Coeff of Sven Plt Count MPV Immature Gran % (Auto) Neut % (Auto) Lymph % (Auto) [place] % (Auto) Eos % (Auto) Baso % (Auto) Immature Gran # (Auto) Neut # (Auto) Lymph # (Auto) [place] # (Auto) Eos # (Auto) Baso # (Auto) RBC Morphology PT INR Sodium Potassium Chloride Carbon Dioxide Anion Gap BUN Creatinine Est Cr Clr Drug Dosing Est GFR ( Amer) Est GFR (Non-Af Amer) BUN/Creatinine Ratio Glucose Calcium Magnesium Total Bilirubin Direct Bilirubin AST ALT Alkaline Phosphatase Troponin I Total Protein Albumin TSH Urine Color Yellow Urine Appearance Clear Urine pH 5.5 Ur Specific [place] 1.019 Urine Protein Negative Urine Glucose (UA) Negative Urine Ketones Negative Urine Blood Negative Urine Nitrite Negative Urine Bilirubin Negative Urine Urobilinogen Negative Ur Leukocyte Esterase Negative
[2019-09-25] MEDS ORDERED: OPTIRAY 320 125ml IV PRN (19:27)
--- NOTE | 2019-09-25 19:44 | CT Scan Report ---
CT head/brain wo con CT DOSE: 1009.00 mGy.cm HISTORY: Mental status change ff up, r/o CVA TECHNIQUE: Multiaxial CT images of the head were performed without the use of intravenous contrast. A dose lowering technique was utilized adhering to the principles of ALARA. Comparison: Same date 12:48 AM Findings: Unchanged maxillary sinus mucosal thickening and fluid. All remaining sinuses are clear. Th e calvarium and skull base are intact. The ventricles and sulci are within normal limits. There is no mass, hematoma, midline shift, or acute infarct. Age-related atrophy and chronic small vessel change . Unchanged 5 mm colloid cyst Impression: 1. No acute intracranial abnormality. 2. Maxillary sinus mucosal thickening and fluid considered unchanged. 3. No change compared to the prior study. ACT 112: Negative or not required by law. The above report was generated using voice recognition software. It may contain grammatical, syntax or spelling errors. Electronically signed by: Keith Harmon M.D. 09/25/2019 7:42 PM
--- NOTE | 2019-09-25 19:56 | CT Scan Report ---
CT angio head w con HISTORY: r/o stenosis occlusion s/p stroke sx TECHNIQUE: Multiaxial CT angiography of the head was performed IV contrast: None. Maximum intensit y projection images were also obtained. A dose lowering technique was utilized adhering to the princ iplCarroll. COMPARISON: None. FINDINGS: There is no mass, hematoma, midline shift, or acute infarct. Visualized intracranial production intern al carotid arteries, distal vertebral arteries, and basilar artery are widely patent. There is no sig nificant stenosis, occlusion, or aneurysm seen within the bilateral ACAs, MCAs, or room service associate. IMPRESSION: No significant stenosis, occlusion, or aneurysm within the [place]. ACT 112: Negative or not required by law. The above report was generated using voice recognition software. It may contain grammatical, syntax or spelling errors. Electronically signed by: Keith Harmon M.D. 09/25/2019 7:55 PM
--- NOTE | 2019-09-25 19:59 | CT Scan Report ---
CT angio neck with con HISTORY: Atherosclerosis r/o stenosis occlusion s/p stroke sx TECHNIQUE: Multiaxial CT angiography of the neck was performed IV contrast: None. All measurements w ere calculated based on NASCET criteria. Maximum intensity projection images were also obtained. A dose lowering technique was utilized adhering to the principles of ALARA. COMPARISON STUDY: None. FINDINGS: The aortic arch and proximal great vessels are widely patent. There is no significant sten osis, occlusion, or dissection identified within the bilateral common carotid, internal carotid, or v ertebral arteries. IMPRESSION: No significant stenosis, occlusion, or dissection identified within the carotid or vertebral arteries . ACT 112: Negative or not required by law. The above report was generated using voice recognition software. It may contain grammatical, syntax or spelling errors. Electronically signed by: Keith Harmon M.D. 09/25/2019 7:58 PM
[2019-09-26] MEDS: CARBIDOPA/LEVODOPA 25/100MG TAB PO SCH ×5 (05:58→20:04)
[2019-09-26] MEDS: ASPIRIN 81 MG ECTAB PO SCH (07:59)
[2019-09-26] MEDS: ACYCLOVIR 400 MG TAB PO SCH ×2 (07:59→20:03)
[2019-09-26 09:00] LABS: Basophils # (auto) 0.01 K/uL (0-0.2); Basophils % (auto) 0.3 %; Eosinophils # (auto) 0.08 K/uL (0-0.5); Eosinophils % (auto) 2.2 %; Hematocrit (blood only) 38.9 % (42-52); Hemoglobin 13.1 g/dL (14.0-18.0); Immature Granulocytes % (auto) 2.8 %; Lymphocytes % (auto) 16.6 %; Mean Corpuscular Hemoglobin 32.1 pg (25-34); Mean Corpuscular Hgb Conc 33.7 g/dL (32-36); Mean Corpuscular Volume 95.3 fL (80-100); Mean Platelet Volume 10.9 fL (7.4-10.4); Monocytes # (auto) 0.28 K/uL (0.11-0.59); Monocytes % (auto) 7.7 %; Neutrophils # (auto) 2.55 K/uL (1.4-6.5); Neutrophils % (auto) 70.4 %; Platelet Count 141 K/uL (130-400); RDW Coefficient of Variation 15.1 % (11.5-14.5); RDW Standard Deviation 52.4 fL (36.4-46.3); Red Blood Count 4.08 M/uL (4.7-6.1); White Blood Count 3.62 K/uL (4.8-10.8)
[2019-09-26] MEDS: CLOPIDOGREL BISULFATE 75 MG TAB PO SCH (09:00)
[2019-09-26] MEDS: ENOXAPARIN INJ 40 MG/0.4 ML SYR SQ SCH (09:00)
[2019-09-26] MEDS: LENALIDOMIDE PO SCH (13:11)
--- NOTE | 2019-09-26 14:06 | Neurology Progress Note ---
Date of Service September 26, 2019 Assessment & Plan (1) Parkinson's disease: 1. CT head- no acute findings 2. TTE- >70 % EF no ASD 3. CTA head and neck - no significant stenosis or occlusion 4. MRI brain would be helpful if able to obtain 5. continue aspirin 81 mg and Plavix and may switch to plavix fpc if any evidence of occlusion or stroke but with his current chemo therapy would not advocate for dual therapy for a prolonged period of time ( see below notation by Dr Bonds ) 6. PT/OT for discharge needs 7. optimize HTN, HLD, DM LDL <70 consider patient age and comorbid issues 8. CT c/t/l spine with and without contrast to r/o lesions or cord narrowing 9. will talk to oncology regarding chemo drug that may be causing increase weakness ok to discharge after imaging once medically stable (2) Multiple myeloma: (3) Left arm weakness: Admission and Anticipated Discharge Date Admission Date: September 25, 2019 Supervising Physician Co-Signing Physician Notes I have seen and discussed above patient with Dr Dennys Bonds, neurology I have seen this man today and feel he is better but is sleep deprived and fatigued.The ct and cta studies reveal no evidence for a new cva, no occlusive vascular disease in the intracranial or extracranial vessels, the echo is normal and at this point cannot diagnose a cva clinically but will not change the policy of yesterday ie assume a cva/tia and rx accordingly wih 21 days of dual treatment then switch to plavix alone Dr Bryson wanted panspinal imaging to assess the weakness and we are ordering this today in the form of ct with contrast of the cervical and thoracic and lumbar cords and once this is oomplete would discharge with follow up in 3 to four weeks to make the switch in antiplatelet rx Dennys Rubinbert is a 78 year old male with Parkinson's, multiple myeloma, pacemaker who presented with weakness that began the morning of presentation. He also has intermittent shakiness as well and the tremors seem to be worse. He is also on a chemotherapy pill since January for multiple myeloma which is when his weakness started to increase. He feels the right arm and left leg are the weakest. He takes baby aspirin each day. He states he feel weaker than yesterday whoever he didn't sleep overnight. He denies urinary symptoms, double vision, chest pain, palpitations, diarrhea, shortness of breath, and abdominal pain, falls. 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 4+/5, hip flex 4+/5 finger to nose no bipass, right resting tremor and bilaterally LE tremor R>L no pronator drift Results & Data ([facility]) Vital Signs (Past 12 Hours) Vital Signs Temp Pulse Pulse Resp BP Pulse Ox 09/26/19 07:26 36.3 C L 62 18 135/72 97 09/26/19 07:14 66 09/26/19 03:54 36.6 C 78 19 141/71 H 94 Laboratory Results Abnormal lab results 09/26/19 Range/Units 08:39 WBC 3.62 L (4.8-10.8) K/uL RBC 4.08 L (4.7-6.1) M/uL Hgb 13.1 L (14.0-18.0) g/dL Hct 38.9 L (42-52) % RDW Std Deviation 52.4 H (36.4-46.3) fL RDW Coeff of Sven 15.1 H (11.5-14.5) % MPV 10.9 H (7.4-10.4) fL Immature Gran # (Auto) 0.10 H (0.00-0.02) K/uL Lymph # (Auto) 0.60 L (1.2-3.4) K/uL Diagnostic Findings CTA head- No significant stenosis, occlusion, or aneurysm within the [place]. CTA neck- no significant stenosis, occlusion, or dissection identified within the carotid or vertebral arteries.
[2019-09-26] MEDS ORDERED: IOVERSOL 100ml IV PRN (17:01)
--- NOTE | 2019-09-26 17:20 | CT Scan Report ---
CT lumbar spine w con HISTORY: Back pain. evaluation for lesions stenosis TECHNIQUE: Multiaxial CT images of the lumbar spine performed following the use of intravenous contra st. COMPARISON STUDY: None. FINDINGS: No fracture or subluxation within the lumbar spine. No suspicious lytic are blastic osseous lesions. Anterior osteophytes seen throughout the lumbar spine. Moderate disc space narrowing at L3- L4 and L4-L5. There is fusion of the L5-S1 vertebral bodies. Moderate facet degenerative changes with in the lower lumbar spine. The sacrum is intact. Broad-based posterior disc osteophyte complexes at L 3-L4 and L4-L5 resulting in mild central canal narrowing. There is moderate bilateral neural foramina l narrowing from L2 through S1. IMPRESSION: 1. No fracture or subluxation within the lumbar spine. 2. Moderate degenerative changes as described above. 3. No suspicious lytic or blastic osseous lesions. ACT 112: Negative or not required by law. Electronically signed by: Jerad Neal M.D. 09/26/2019 5:19 PM
--- NOTE | 2019-09-26 17:22 | CT Scan Report ---
CT cervical spine w con HISTORY: 78 years-old Male evaluation for lesions stenosis acute neck pain COMPARISON: CTA of the neck 09/25/2019 TECHNIQUE: Multiple axial CT images of the cervical spine were obtained following the intravenous min istration of 92 mL Optiray 320 IV contrast. Coronal and sagittal reformatted images were obtained fro m the axial data set and were submitted for review. A dose lowering technique was used consistent wit h the principals of NAN. FINDINGS: Imaged major cranial structures and soft tissues appear unremarkable. Subcentimeter right thyroid nod ule. Pleural parenchymal scarring of the lung apices 4 mm solid nodule of the left lung apex. 4 mm no dule adjacent to the superior aspect of the right major fissure. No high-grade central canal stenosis identified. Mildly demineralized appearance of the bones. Scattered lucent foci of the bone marrow i s likely secondary to underlying bone demineralization. 4 mm sclerotic focus of the C3 vertebral body may reflect a bone island. Reversal of the cervical lordosis with mild kyphosis centered at C4-C5. S evere multilevel disc space narrowing with bridging spondylitic spurring. Severe facet arthrosis with partial facet fusion of the upper and mid cervical spine. There is severe left-sided foraminal narro wing at C2-C3 with at least moderate right-sided foraminal narrowing. Moderate bilateral foraminal na rrowing at C3-C4 bilaterally. Evaluation of the central canal and neuroforamina are better evaluated by MRI. IMPRESSION: 1. No acute fracture or subluxation. 2. Multilevel degenerative changes as above. 3. No abnormal enhancement. 4. Biapical pleural-parenchymal scarring with 4 mm solid nodules of the upper lobes, indeterminate ho wever likely benign. ACT 112: Negative or not required by law. The above report was generated using voice recognition software. It may contain grammatical, syntax o r spelling errors. Electronically signed by: Tay Damon M.D. 09/26/2019 5:21 PM
--- NOTE | 2019-09-26 17:32 | Hospitalist Progress Note ---
Date of Service September 26, 2019 Assessment & Plan (1) Facial droop: Right facial droop With weakness/numbness on the contralateral extremities -patient placed on observation on 09/25/2019 and initially seen by neurology which recommended antiplatelet therapy. Carotid Dopplers: No hemodynamically significant stenosis -TTE- >70 % EF no ASD -brain MRI deferred because of pacemaker -Lipid profile pending -as per 09/26/2019 Dr. Bonds: "The ct and cta studies reveal no evidence for a new cva, no occlusive vascular disease in the intracranial or extracranial vessels, the echo is normal and at this point cannot diagnose a cva clinically but will not change the policy of yesterday ie assume a cva/tia and rx accordingly wih 21 days of dual treatment then switch to plavix alone" -09/26/2019 hospitalist assessments patient is slow to sit up but no acute back pain. no dizziness. no headache. speaking in full sentences with no notable aphasia. breathing on room air. no chest pain. no acute telemetry events noted. patient is upgraded from observation to full admission because neurology ordered more investigative studies of patient spine with CT scans with contrast to rule out spine lesions or spinal stenosis -cervical CT scan 1. No acute fracture or subluxation. 2. Multilevel degenerative changes as above. 3. No abnormal enhancement. 4. Biapical pleural-parenchymal scarring with 4 mm solid nodules of the upper lobes, indeterminate however likely benign. -Thoracic CT scan 1. No fractures or subluxation within the thoracic spine. 2. No suspicious lytic or blastic osseous lesions. 3. Possible ankylosing spondylitis. 4. Reticulonodular interstitial thickening within the lung apices with patchy groundglass densities within the right lower lobe and left upper lobe. This favors an atypical pneumonitis. -Lumbar CT scan 1. No fracture or subluxation within the lumbar spine. 2. Moderate degenerative changes as described above. 3. No suspicious lytic or blastic osseous lesions. -CT scans with spine as above are generally benign - no spine lesions, there is a possible ankylosing spondylitis mentioned on thoracic CT scan but this does like explain "stroke like symptoms of face or extremities" -patient is on treatment for multiple myeloma and steroids and will defer to any further on going treatment with patient's oncologist -will give IV fluids because of IV contrast and check renal function on 09/27/2019 -outpatient neurology appointments 10/08/2019 10:20 AM Provider Herminia Bryson MD 11/15/2019 9:00 AM Provider Herminia Bryson MD Department Neurology [facility] Hypertension, secondary to above -admission systolic blood pressure in the 160s -blood pressure improving with significant interventions hx symptomatic bradycardia status post PPM --Heart rate stable smoldering myeloma ongoing Revlimid tx -patient is on dexamethasone -as outpatient, he gets lenalidomide -Follows with Dr. River in [place] for oncology -check serum B12 and folic acid levels on 09/27/2019 prostate cancer status post surgery Parkinson's disease, at baseline Chronic anemia, hemoglobin better than last baseline documented in Epic -Monitor inpatient for now DVT prophylaxis per Lovenox subcu Full code Admission and Anticipated Discharge Date Admission Date: September 26, 2019 Subjective patient is slow to sit up but no acute back pain. no dizziness. no headache. speaking in full sentences with no notable aphasia. breathing on room air. no chest pain. no acute telemetry events noted. patient is upgraded from observation to full admission because neurology ordered more investigative studies of patient spine with CT scans Review of Systems Review of Systems: All systems reviewed & are unremarkable except as noted in HPI & below Physical Exam Constitutional: comfortable Eyes: PERRL, conjunctivae normal, anicteric sclerae EOM intact bilaterally ENMT: external ear and nose normal, oropharynx normal Neck: normal visual inspection Respiratory: normal respiratory effort, lungs clear to auscultation Gastrointestinal (Abdomen): normal bowel sounds, soft, nontender, no hepatosplenomegaly Musculoskeletal: Head/Neck/Chest: normocephalic and head atraumatic Neurologic: PERRL, EOMI, accommodation nl, no face palsy, no dysarthria Psychiatric: A+Ox3, euthymic affect Results & Data ([facility]) Vital Signs (Past 12 Hours) Vital Signs Temp Pulse Pulse Resp BP Pulse Ox 09/26/19 17:07 83 09/26/19 15:21 98 09/26/19 15:16 73 18 106/70 95 09/26/19 07:26 36.3 C L 62 18 135/72 97 09/26/19 07:14 66
--- NOTE | 2019-09-26 17:33 | CT Scan Report ---
CT thoracic spine w con HISTORY: Back pain. evaluation for lesions stenosis TECHNIQUE: Multiaxial CT images of the thoracic spine performed reformatted in the sagittal and coron al plane following the use of intravenous contrast. COMPARISON STUDY: None. FINDINGS: The left-sided pacemaker. Reticulonodular interstitial thickening within the lung apices. P atchy groundglass density within the right lower lobe and left upper lobe. This favors an atypical pn eumonitis. Calcified mediastinal lymph nodes are noted. The heart is normal in size. Paraspinal soft tissues are unremarkable. No fracture or subluxation within the thoracic spine. No suspicious lytic a re blastic osseous lesions. The majority of the thoracic spine vertebral bodies are fused with multip le syndesmophytes. The spinous processes are partially fused. Therefore, this raises the possibility of ankylosing spondylitis. No central canal by CT technique. There is mild bilateral neural foraminal narrowing within the lower thoracic spine. IMPRESSION: 1. No fractures or subluxation within the thoracic spine. 2. No suspicious lytic or blastic osseous lesions. 3. Possible ankylosing spondylitis. 4. Reticulonodular interstitial thickening within the lung apices with patchy groundglass densities w ithin the right lower lobe and left upper lobe. This favors an atypical pneumonitis. ACT 112: Negative or not required by law. Electronically signed by: Jerad Neal M.D. 09/26/2019 5:31 PM
[2019-09-26] MEDS: SODIUM CHLORIDE 0.9% 1000ML 1,000 ML IV SCH (18:57)
[2019-09-27] MEDS: SODIUM CHLORIDE 0.9% 1000ML 1,000 ML IV SCH (06:05)
[2019-09-27] MEDS: CARBIDOPA/LEVODOPA 25/100MG TAB PO SCH ×3 (06:07→15:40)
[2019-09-27] MEDS: CLOPIDOGREL BISULFATE 75 MG TAB PO SCH (08:23)
[2019-09-27] MEDS: ASPIRIN 81 MG ECTAB PO SCH (08:23)
[2019-09-27] MEDS: ACYCLOVIR 400 MG TAB PO SCH (08:23)
[2019-09-27] MEDS: ENOXAPARIN INJ 40 MG/0.4 ML SYR SQ SCH (08:24)
[2019-09-27 09:09] LABS: Folate (Folic Acid) > 24.00 ng/ml (>5.38); Vitamin B12 > 2000 pg/ml (211-911)
[2019-09-27 09:19] LABS: Albumin Level 2.9 gm/dl (3.4-5.0); BUN Creatinine Ratio 15.2 (10-20); Calcium 8.9 mg/dl (8.5-10.1); Creatinine Clr Calc Pharmacy 74.4 ml/min; Est GFR (African American) 104.3
[2019-09-27 09:24] LABS: Albumin Globulin Ratio 0.7 (0.9-2); Bilirubin,Total 0.5 mg/dl (0.2-1); Total Protein 6.9 gm/dl (6.4-8.2)
[2019-09-27] MEDS: LENALIDOMIDE PO SCH (10:56)
--- NOTE | 2019-09-27 14:21 | Hospitalist Progress Note ---
Date of Service September 27, 2019 Assessment & Plan (1) Facial droop: Right facial droop With weakness/numbness on the contralateral extremities suspected TIA (Transient Ischemic Attack) -patient placed on observation on 09/25/2019 and initially seen by neurology which recommended antiplatelet therapy. Carotid Dopplers: No hemodynamically significant stenosis -TTE- >70 % EF no ASD -brain MRI deferred because of pacemaker -as per 09/26/2019 Dr. Bonds: "The ct and cta studies reveal no evidence for a new cva, no occlusive vascular disease in the intracranial or extracranial vessels, the echo is normal and at this point cannot diagnose a cva clinically but will not change the policy of yesterday ie assume a cva/tia and rx accordingly wih 21 days of dual treatment then switch to plavix alone" -09/26/2019 hospitalist assessments patient is slow to sit up but no acute back pain. no dizziness. no headache. speaking in full sentences with no notable aphasia. breathing on room air. no chest pain. no acute telemetry events noted. patient is upgraded from observation to full admission because neurology ordered more investigative studies of patient spine with CT scans with contrast to rule out spine lesions or spinal stenosis -cervical CT scan 1. No acute fracture or subluxation. 2. Multilevel degenerative changes as above. 3. No abnormal enhancement. 4. Biapical pleural-parenchymal scarring with 4 mm solid nodules of the upper lobes, indeterminate however likely benign. -Thoracic CT scan 1. No fractures or subluxation within the thoracic spine. 2. No suspicious lytic or blastic osseous lesions. 3. Possible ankylosing spondylitis. 4. Reticulonodular interstitial thickening within the lung apices with patchy groundglass densities within the right lower lobe and left upper lobe. This favors an atypical pneumonitis. -Lumbar CT scan 1. No fracture or subluxation within the lumbar spine. 2. Moderate degenerative changes as described above. 3. No suspicious lytic or blastic osseous lesions. -CT scans with spine as above are generally benign - no spine lesions, there is a possible ankylosing spondylitis mentioned on thoracic CT scan but this does like explain "stroke like symptoms of face or extremities" -patient is on treatment for multiple myeloma and steroids and will defer to any further on going treatment with patient's oncologist. Patient will have CD of hospital imaging to give to his specialist doctors -given IV fluids because of IV contrast. IV fluids stopped on 09/27/2019 -Patient's LDL cholesterol is low as 50 and therefor will not be discharged on a statin -aspirin 81 mg daily and clopidogrel (Plavix) 75 mg for 21 days as a combination and after this 21 days, patient is recommended to be on clopidogrel (Plavix) 75 mg daily alone. discharge medication sent electronically to [address] , [place] [id number] -outpatient neurology appointments 10/08/2019 10:20 AM Provider Herminia Bryson MD 11/15/2019 9:00 AM Provider Herminia Bryson MD Department Neurology [facility] Hypertension -admission systolic blood pressure in the 160s -blood pressure improving with significant interventions hx symptomatic bradycardia status post PPM -Heart rate stable smoldering myeloma ongoing Revlimid tx -patient is on dexamethasone -as outpatient, he gets lenalidomide -Follows with Dr. River in [place] for oncology -no deficiency of serum B12 or serum folic acid levels on 09/27/2019 prostate cancer status post surgery Parkinson's disease, at baseline Chronic anemia -stable Hgb DVT prophylaxis per Lovenox subcu Full code Admission and Anticipated Discharge Date Admission Date: September 26, 2019 Subjective Patient continues to be awake and alert. no complaints of facial droop. baseline movements as compared to yesterday. patient speaks in full sentences. breathing on room air. no chest pain. no shortness of breath. no abdomen pain. no dizziness. Review of Systems Review of Systems: All systems reviewed & are unremarkable except as noted in HPI & below Physical Exam Constitutional: comfortable Eyes: PERRL, conjunctivae normal, anicteric sclerae EOM intact bilaterally ENMT: external ear and nose normal, oropharynx normal Neck: normal visual inspection Respiratory: normal respiratory effort, lungs clear to auscultation Gastrointestinal (Abdomen): normal bowel sounds, soft, nontender, no hepatosplenomegaly Musculoskeletal: Head/Neck/Chest: normocephalic and head atraumatic Neurologic: PERRL, EOMI, accommodation nl, no face palsy, no dysarthria Psychiatric: A+Ox3, euthymic affect Results & Data ([facility]) Vital Signs (Past 12 Hours) Vital Signs Temp Pulse Pulse Resp BP BP Pulse Ox 09/27/19 12:06 36.7 C 71 18 159/83 H 97 09/27/19 07:58 36.5 C 63 18 104/64 97 09/27/19 03:43 36.5 C 62 17 132/67 96 09/27/19 02:25 61
--- NOTE | 2019-09-27 14:38 | Neurology Progress Note ---
Date of Service September 27, 2019 Assessment & Plan (1) Parkinson's disease: 1. CT head- no acute findings 2. TTE- >70 % EF no ASD 3. CTA head and neck - no significant stenosis or occlusion 4. MRI brain would be helpful if able to obtain 5. continue aspirin 81 mg and Plavix 75 mg x 21 days then switch to plavix only for life 6. PT/OT for discharge needs 7. optimize HTN, HLD, DM LDL <70 consider patient age and comorbid issues 8. CT c/t/l spine with and without contrast to r/o lesions or cord narrowing no lesions or central cord narrowing 9. will talk to oncology regarding chemo drug that may be causing increase weakness ok to discharge after imaging once medically stable follow up with neurology Dr Bryson as scheduled. (2) Multiple myeloma: (3) Left arm weakness: Admission and Anticipated Discharge Date Admission Date: September 26, 2019 Supervising Physician Co-Signing Physician Notes I have seen and discussed above patient with Dr Dennys Bonds, neurology Patient letter is being discharged today. He has a mild right upper motor neuron facial paresis but I still cannot establish whether or not this is a longstanding issue or a new process family is equally uncertain but does feel this is a new event although very mild in nature and if this is the case and we are going to treat this as you are doing as a completed stroke and go with dual antiplatelet treatment for the next 3 weeks Spinal imaging that showed some degenerative changes in the thoracic spine with some features that suggest ankylosing spondylitis but this is an academic issue in that there is no significant evidence for cervical or thoracic spinal canal stenosis we really cannot do any imaging studies with MRI due to his cardiac hardware. We are has no evidence for myelopathy clinically anyway I think his episodes of global weakness are probably explained based on the reaction to the chemotherapeutic regimen for his smoldering myeloma We will follow-up with Dr. Jack rwho will ultimately make a decision about continued antiplatelet therapy which agent to maintain and is going to discuss his chemotherapy with his oncologist there is a quality of his life which weeks after chemotherapy is significantly altered to the point that he is not sure further treatment is really worth it His antiparkinson medications are being maintained at the current dose will also be adjusted as needed by Dr. Tellez on outpatient basis Dennys Bonds MD Ruth Crews is a 78 year old male with Parkinson's, multiple myeloma, pacemaker who presented with weakness that began the morning of presentation. He also has intermittent shakiness as well and the tremors seem to be worse. He is also on a chemotherapy pill since January for multiple myeloma which is when his weakness started to increase. He feels the right arm and left leg are the weakest. He takes baby aspirin each day. He states he is feeling better today. He is ready to go home. His son and are in the room. Imaging reviewed with patient, and son He denies urinary symptoms, double vision, chest pain, palpitations, diarrhea, shortness of breath, and abdominal pain, falls. Physical Exam Physical Exam: Gen: alert NAD lungs normal respiratory effort CV RRR facial symmetry right UE resting tremor and bilaterally LE tremor R>L oriented to self, [facility] Results & Data ([facility]) Vital Signs (Past 12 Hours) Vital Signs Temp Pulse Resp BP BP Pulse Ox 09/27/19 12:06 36.7 C 71 18 159/83 H 97 09/27/19 07:58 36.5 C 63 18 104/64 97 09/27/19 03:43 36.5 C 62 17 132/67 96 Laboratory Results Abnormal lab results 09/27/19 09/27/19 Range/Units 08:08 08:08 AST 38 H (15-37) U/L Alkaline Phosphatase 141 H (45-117) U/L Albumin 2.9 L (3.4-5.0) gm/dl Albumin/Globulin Ratio 0.7 L (0.9-2) Vitamin B12 > 2000 H (211-911) pg/ml Diagnostic Findings CT c spine- No acute fracture or subluxation. Multilevel degenerative changes as above. No abnormal enhancement. Biapical pleural-parenchymal scarring with 4 mm solid nodules of the upper lobes, indeterminate however likely benign. CT T spine- No acute fracture or subluxation. Multilevel degenerative changes as above. No abnormal enhancement. Biapical pleural-parenchymal scarring with 4 mm solid nodules of the upper lobes, indeterminate however likely benign. CT L spine- No fracture or subluxation within the lumbar spine. Moderate degenerative changes as described above. No suspicious lytic or blastic osseous lesions.
--- NOTE | 2019-09-27 14:46 | Discharge Summary ---
Date of Service September 27, 2019 Admission HPI Per Admitting Provider History obtained from patient, family, and records. Medical history significant for symptomatic bradycardia status post PPM , smoldering myeloma ongoing Revlimid tx, prostate cancer status post surgery, history of Parkinson's disease, liver hemangioma status post surgery. Yesterday morning patient woke up feeling weaker than usual which patient attributed to chemotherapy medicine. Left arm felt a little weaker than the right. Left lower extremity numbness. No headache. Some dizziness symptoms as per patient. Around dinnertime last night, patient noted right lower side of the face to be a little droopy. No prior episodes. Patient brought to the ER for evaluation by family. 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, lives with Admission Exam Per Admitting Provider GENERAL: Comfortable, slightly anxious, no respiratory distress SKIN: Pallor , warm HEENT: Pale palpebral conjunctivae, no ptosis, nasolabial fold flattening right face, dry buccal mucosa NECK : Supple, no tenderness CHEST : CTA, no tenderness HEART : RRR, no obvious murmurs ABDOMEN: Some distention, nontender EXTREMITIES : No LE swelling/tenderness, no other conspicuous deformities noted NEUROLOGIC : Coherent, subtle right facial asymmetry, MMTS BUE, BLE 3/5, no pronator drift, rest tremors more prominent on the right upper extremity, gait and stance not assessed Principal Diagnosis Right facial droop With weakness/numbness on the contralateral extremities suspected TIA (Transient Ischemic Attack) Hypertension smoldering myeloma Discharge Exam Constitutional comfortable Eyes PERRL, conjunctivae normal, anicteric sclerae EOM intact bilaterally ENMT external ear and nose normal, oropharynx normal Neck normal visual inspection Respiratory normal respiratory effort, lungs clear to auscultation Gastrointestinal (Abdomen) normal bowel sounds, soft, nontender, no hepatosplenomegaly Musculoskeletal Head/Neck/Chest: normocephalic and head atraumatic Neurologic PERRL, EOMI, accommodation nl, no face palsy, no dysarthria Psychiatric A+Ox3, euthymic affect Discharge Data Allergies Allergy/AdvReac Type Severity Reaction Status Date / Time piperacillin AdvReac Intermediate COLD SWEAT Unverified 09/25/19 00:27 tazobactam AdvReac Intermediate COLD SWEAT Unverified 09/25/19 00:27 Consultations 09/25/19 02:08 ED Decision to Admit Stat 09/25/19 04:15 Consult Case Management - Discharge Planning Routine Consult Neurology Routine 09/27/19 13:37 Burn CD for patient Stat Ordered Studies 09/24/19 23:50 CT head/brain wo con Urgent 09/25/19 04:15 US carotid doppler BI Routine 09/25/19 15:49 CT angio head w con Routine CT angio neck with con Routine 09/25/19 19:00 CT head/brain wo con Routine 09/26/19 15:16 CT cervical spine w con Routine 09/26/19 15:33 CT thoracic spine w con Routine 09/26/19 16:00 CT lumbar spine w con Routine Hospital Course (1) Facial droop: Right facial droop With weakness/numbness on the contralateral extremities suspected TIA (Transient Ischemic Attack) -patient placed on observation on 09/25/2019 and initially seen by neurology which recommended antiplatelet therapy. Carotid Dopplers: No hemodynamically significant stenosis -TTE- >70 % EF no ASD -brain MRI deferred because of pacemaker -as per 09/26/2019 Dr. Bonds: "The ct and cta studies reveal no evidence for a new cva, no occlusive vascular disease in the intracranial or extracranial vessels, the echo is normal and at this point cannot diagnose a cva clinically but will not change the policy of yesterday ie assume a cva/tia and rx accordingly wih 21 days of dual treatment then switch to plavix alone" -09/26/2019 hospitalist assessments patient is slow to sit up but no acute back pain. no dizziness. no headache. speaking in full sentences with no notable aphasia. breathing on room air. no chest pain. no acute telemetry events noted. patient is upgraded from observation to full admission because neurology ordered more investigative studies of patient spine with CT scans with contrast to rule out spine lesions or spinal stenosis -cervical CT scan 1. No acute fracture or subluxation. 2. Multilevel degenerative changes as above. 3. No abnormal enhancement. 4. Biapical pleural-parenchymal scarring with 4 mm solid nodules of the upper lobes, indeterminate however likely benign. -Thoracic CT scan 1. No fractures or subluxation within the thoracic spine. 2. No suspicious lytic or blastic osseous lesions. 3. Possible ankylosing spondylitis. 4. Reticulonodular interstitial thickening within the lung apices with patchy groundglass densities within the right lower lobe and left upper lobe. This favors an atypical pneumonitis. -Lumbar CT scan 1. No fracture or subluxation within the lumbar spine. 2. Moderate degenerative changes as described above. 3. No suspicious lytic or blastic osseous lesions. -CT scans with spine as above are generally benign - no spine lesions, there is a possible ankylosing spondylitis mentioned on thoracic CT scan but this does like explain "stroke like symptoms of face or extremities" -patient is on treatment for multiple myeloma and steroids and will defer to any further on going treatment with patient's oncologist. Patient will have CD of hospital imaging to give to his specialist doctors -given IV fluids because of IV contrast. IV fluids stopped on 09/27/2019 -Patient's LDL cholesterol is low as 50 and therefor will not be discharged on a statin -aspirin 81 mg daily and clopidogrel (Plavix) 75 mg for 21 days as a combination and after this 21 days, patient is recommended to be on clopidogrel (Plavix) 75 mg daily alone. discharge medication sent electronically to [facility] [address] , [place] [address] -outpatient neurology appointments 10/08/2019 10:20 AM Provider Herminia Bryson MD 11/15/2019 9:00 AM Provider Herminia Bryson MD Department Neurology [facility] Hypertension -admission systolic blood pressure in the 160s -blood pressure improving with significant interventions hx symptomatic bradycardia status post PPM -Heart rate stable smoldering myeloma ongoing Revlimid tx -patient is on dexamethasone -as outpatient, he gets lenalidomide -Follows with Dr. River in [place] for oncology -no deficiency of serum B12 or serum folic acid levels on 09/27/2019 prostate cancer status post surgery Parkinson's disease, at baseline Chronic anemia -stable Hgb DVT prophylaxis per Lovenox subcu Full code Total Time Total Time Spent Total Time Spent (In Minutes): 40 minutes Total Time Includes: Examination of the Patient, Discharge Planning, Medication Reconciliation and Communication With Other Providers Discharge Plan Discharge Items Patient Disposition: Home - Self-Care Reason For Visit: R FACIAL WEAKNESS Discharge Diagnosis: Right facial droop With weakness/numbness on the contralateral extremities suspected TIA (Transient Ischemic Attack) Hypertension smoldering myeloma Condition on Discharge: Good Activity: Per Instructions section Non-emergency contact: Primary Care Provider, Specialist, Wax Coating Machine Tender and Neurologist Call non-emergency contact if: you have any medication questions Follow-up/Referrals: Nir Ulloa [Primary Care Provider] - 10/03/19 9:00 am (Dr. Ulloa is out of the office. Patient will see VAUGHN Hood. Appointment was made for her first available appointment. If you cannot keep this appointment, please phone the office at [phone] to reschedule.) Diet: Heart Healthy Addtl Attending Provider Instructions: -Patient's LDL cholesterol is low as 50 and therefor will not be discharged on a statin -aspirin 81 mg daily and clopidogrel (Plavix) 75 mg for 21 days as a combination and after this 21 days, patient is recommended to be on clopidogrel (Plavix) 75 mg daily alone. [facility] , [place] [address] -outpatient neurology appointments 10/08/2019 10:20 AM Provider Herminia Bryson MD 11/15/2019 9:00 AM Provider Herminia Bryson MD Department Neurology [facility] Risk Factors for Stroke: You can reduce your chances of stroke by working with your medical provider to adopt a healthy lifestyle. Some specific ways to lower your chance of stroke are: * If you are a smoker, now is the time to stop smoking cigarettes * If you are diabetic, improve the control of your blood sugars * Avoid excessive amounts of alcohol * Control high blood pressure * Lose weight if you are overweight * Be sure to lead an active lifestyle * Eat a healthy diet low in salt, cholesterol and fat You should know about other risk factors for stroke that you are unable to control. These include: * Age 55 years or older * Male gender * Certain racial groups: , or / * Family History of Stroke, Mini stroke or Heart Attack * Sickle Cell Disease Follow Up: It is important for you to keep your follow up appointments with your medical provider. Who to Call and When: Medical Emergencies: Call 911 immediately if you experience any of the following warning signs and symptoms of Stroke: * Sudden numbness or weakness of the face, arm or leg, especially on one side of the body * Sudden confusion, trouble speaking or understanding * Sudden trouble seeing in one or both eyes * Sudden trouble walking, dizziness, loss of balance or coordination * Sudden severe headache with no cause Do not delay calling 911 if you experience any warning signs or symptoms of a stroke. Delay in seeking medical attention may affect what treatments can be given to you. . Addtl Drawing Kiln Supervisor Provider Instructions: patient placed on observation on 09/25/2019 and initially seen by neurology which recommended antiplatelet therapy. Carotid Dopplers: No hemodynamically significant stenosis -TTE- >70 % EF no ASD -brain MRI deferred because of pacemaker -as per 09/26/2019 Dr. Bonds: "The ct and cta studies reveal no evidence for a new cva, no occlusive vascular disease in the intracranial or extracranial vessels, the echo is normal and at this point cannot diagnose a cva clinically but will not change the policy of yesterday ie assume a cva/tia and rx accordingly wih 21 days of dual treatment then switch to plavix alone" -09/26/2019 hospitalist assessments patient is slow to sit up but no acute back pain. no dizziness. no headache. speaking in full sentences with no notable aphasia. breathing on room air. no chest pain. no acute telemetry events noted. patient is upgraded from observation to full admission because neurology ordered more investigative studies of patient spine with CT scans with contrast to rule out spine lesions or spinal stenosis -cervical CT scan 1. No acute fracture or subluxation. 2. Multilevel degenerative changes as above. 3. No abnormal enhancement. 4. Biapical pleural-parenchymal scarring with 4 mm solid nodules of the upper lobes, indeterminate however likely benign. -Thoracic CT scan 1. No fractures or subluxation within the thoracic spine. 2. No suspicious lytic or blastic osseous lesions. 3. Possible ankylosing spondylitis. 4. Reticulonodular interstitial thickening within the lung apices with patchy groundglass densities within the right lower lobe and left upper lobe. This favors an atypical pneumonitis. -Lumbar CT scan 1. No fracture or subluxation within the lumbar spine. 2. Moderate degenerative changes as described above. 3. No suspicious lytic or blastic osseous lesions. -CT scans with spine as above are generally benign - no spine lesions, there is a possible ankylosing spondylitis mentioned on thoracic CT scan but this does like explain "stroke like symptoms of face or extremities" -patient is on treatment for multiple myeloma and steroids and will defer to any further on going treatment with patient's oncologist. Patient will have CD of hospital imaging to give to his specialist doctors Pending Studies at Discharge: No Stand-Alone Forms: [facility], Smoking Cessation Medications and DC Order Prescriptions: New clopidogrel 75 mg Tablet 75 mg PO QAM 30 Days Qty: 30 RF: 1 aspirin [Aspirin Low Dose] 81 mg tablet,delayed release (DR/EC) 81 mg PO QAM 21 Days Qty: 21 RF: 0 Continued acyclovir 400 mg Tablet 400 mg PO BID RF: 0 carbidopa-levodopa 25-100 mg Tablet 1 tab PO DIRECTED RF: 0 ascorbic acid (vitamin C) [Vitamin C] 1,000 mg Tablet 1,000 mg PO DAILY RF: 0 Magnesium Complex 400 mg PO DAILY RF: 0 cholecalciferol (vitamin D3) 5,000 unit Tablet,Disintegrating 5,000 unit PO DAILY RF: 0 dexamethasone 4 mg Tablet 20 mg PO DIRECTED RF: 0 Revlimid 10 mg Capsule 10 mg PO DIRECTED RF: 0 tramadol 50 mg Tablet 50 mg PO DIRECTED PRN (Reason: Pain) RF: 0 Medical Marijuana 1 dose PO DIRECTED RF: 0 Discontinued aspirin [Aspirin Low Dose] 81 mg Tablet,Delayed Release (Dr/Ec) 81 mg PO DAILY RF: 0 Discharge Orders: Discharge Order (Routine); Ordered 09/27/19 Ordered By: Víctor Madrid Admission Data Admit Date/Time: 09/26/19 15:38 Attending Provider: Víctor Madrid Admit Provider: Kyaw Walker Primary Care Provider: Nir Ulloa Other Providers: Kyaw Walker ; Dennys Bonds
[2019-09-30] MEDS ORDERED: dexAMETHasone 4 MG TAB PO SCH (09:00)
== END 2019-09-27 15:57 | disposition home or self-care (01) | DRG 69 ==
LOC: 2W 23:16 → ED 23:16 → SUATTDRO 09-25 02:53 → 2W 09-25 03:33